=== PATIENT | female | born 1995 | race Two or more races ===

== ENCOUNTER → 2017-02-15 | Outpatient (CLI) | payer OTHER, MEDICAID ==
--- NOTE | 2017-02-15 14:29 | KCIC ---
Early OB ultrasound History: Evaluate size and dates. Comparison: None. Technique: Transabdominal imaging was performed. Findings: Single live intrauterine is identified with gestational sac and embryo seen. Mean crown-rump length is 1.21 cm corresponding to 7 weeks 3 days. Estimated date of delivery based on this measurement is October 01, 2017. Embryonic heart motion is 155 bpm. Uterus measures 10.8 cm in length. No adnexal masses are seen. Left ovary measures 2.9 x 3.0 x 1.6 cm and demonstrates a follicle. Right ovary measures 1.9 x 1.8 x 2.3 cm and is unremarkable. Both ovaries demonstrate normal vascular flow upon Doppler interrogation and are without evidence of torsion. Impression: 1. Single live intrauterine . Average ultrasound age is 7 weeks 3 days. Estimated date of delivery based on this measurement is October 01, 2017. Electronically signed by: Rolando Wilson MD (02/15/2017 2:25 PM) [id number]
== END | disposition home or self-care (01) ==
LOC: KCIC US 12:07
PROVIDERS: ATTEND Advanced Practice Midwife
DX: Z34.91 Encounter for supervision of normal pregnancy, unspecified, first trimester (principal); Z3A.01 Less than 8 weeks gestation of pregnancy
CPT/HCPCS: 76801